=== PATIENT | male | born 1980 | race Caucasian/White ===

== ENCOUNTER → 2016-04-27 | Outpatient (CLI) | payer BC ==
[2016-04-27 17:43] LABS: CHLORIDE,CL 102 mmol/L (98-110); SODIUM,NA 138 mmol/L (136-146)
== END ==
LOC: MW.LAB 16:53
PROVIDERS: ATTEND Nurse Practitioner Family
DX: R05 Cough (principal); R53.81 Other malaise
CPT/HCPCS: 36415; 80053; 81001; 84439; 84443; 85025

== ENCOUNTER 2019-01-15 06:38 | Emergency (ER) | payer BC ==
--- NOTE | 2019-01-15 06:52 | EDM.PDOC ---
ED HPI GENERAL MEDICAL PROBLEM - General Chief Complaint: Upper Extremity Injury/Pain Stated Complaint: RT WRIST HURTS Time Seen by Provider: 01/15/19 06:47 - History of Present Illness INITIAL COMMENTS - FREE TEXT/NARRATIVE: HISTORY AND PHYSICAL: History of present illness: Patient is 38-year-old white male presents 1 day status post fall which injured his right wrist he denies other trauma or concern Review of systems: As per history of present illness and below otherwise all systems reviewed and negative. Past medical history: As per history of present illness and as reviewed below otherwise noncontributory. Surgical history: As per history of present illness and as reviewed below otherwise noncontributory. Social history: No reported history of drug or alcohol abuse. Family history: As per history of present illness and as reviewed below otherwise noncontributory. Physical exam: HEENT: Atraumatic, normocephalic, pupils reactive, negative for conjunctival pallor or scleral icterus, mucous membranes moist, throat clear, neck supple, nontender, trachea midline. Lungs: Clear to auscultation, breath sounds equal bilaterally, chest nontender. Heart: S1S2, regular, negative for clicks, rubs, or JVD. Abdomen: Soft, nondistended, nontender. Negative for masses or hepatosplenomegaly. Negative for costovertebral tenderness. Pelvis: Stable nontender. Genitourinary: Deferred. Rectal: Deferred. Extremities: Patient has tenderness over the lateral aspect of his right wrist this is on the dorsal aspect there is no gross deformity CMS neurovascular exam is unremarkable there is no snuffbox tenderness. Neuro: Awake, alert, oriented. Cranial nerves II through XII unremarkable. Cerebellum unremarkable. Motor and sensory unremarkable throughout. Exam nonfocal. Diagnostics: X-ray right wrist Therapeutics: Velcro splint Impression: #1 acute right wrist injury Definitive disposition and diagnosis as appropriate pending reevaluation and review of above. R anterior wrist Pain Score (Numeric/FACES): 7 - Related Data Allergies Allergy/AdvReac Type Severity Reaction Status Date / Time sulfamethoxazole Allergy Hives Verified 01/15/19 06:50 [From Bactrim] trimethoprim [From Bactrim] Allergy Hives Verified 01/15/19 06:50 Home Meds: Home Meds . [No Known Home Meds] 01/15/19 [History] Review of Systems - Review of Systems Review Of Systems: Comprehensive ROS is negative, except as noted in HPI. ED EXAM, GENERAL - Physical Exam Exam: See Below (See dictation) Course - Vital Signs Last Recorded V/S: Last Vital Signs Temp 36.0 C 01/15/19 06:45 Pulse 96 01/15/19 06:45 Resp 18 01/15/19 06:45 BP 159/97 H 01/15/19 06:45 Pulse Ox 96 01/15/19 06:45 Departure - Departure Time of Disposition: 07:52 Disposition: Home, Self-Care 01 Condition: Good Clinical Impression: Wrist injury - Discharge Information Referrals: PCP,None [Primary Care Provider] - Forms: ED Department Discharge Additional Instructions: The following information is given to patients seen in the emergency department who are being discharged to home. This information is to outline your options for follow-up care. We provide all patients seen in our emergency department with a follow-up referral. The need for follow-up, as well as the timing and circumstances, are variable depending upon the specifics of your emergency department visit. If you don't have a primary care physician on staff, we will provide you with a referral. We always advise you to contact your personal physician following an emergency department visit to inform them of the circumstance of the visit and for follow-up with them and/or the need for any referrals to a consulting specialist. The emergency department will also refer you to a specialist when appropriate. This referral assures that you have the opportunity for followup care with a specialist. All of these measure are taken in an effort to provide you with optimal care, which includes your followup. Under all circumstances we always encourage you to contact your private physician who remains a resource for coordinating your care. When calling for followup care, please make the office aware that this follow-up is from your recent emergency room visit. If for any reason you are refused follow-up, please contact the [facility] emergency department at and asked to speak to the emergency department charge nurse. Velcro splint as directed Motrin/Tylenol obstructive follow-up primary medical doctor as needed as discussed and return as needed as discussed
--- NOTE | 2019-01-15 07:49 | CR ---
INDICATION: Fall. Pain. FINDINGS: Two views of the right wrist show no evidence of acute fracture or dislocation. No other bony or soft tissue abnormalities identified. Dictated by Moris Carranza MD @ 01/15/2019 7:47:45 AM Dictated by: Moris Carranza MD @ 01/15/2019 07:47:57 (Electronically Signed)
== END 2019-01-15 08:00 | disposition home or self-care (01) ==
LOC: MW.ED 06:38
DX: S69.91XA Unspecified injury of right wrist, hand and finger(s), initial encounter (principal); Z88.2 Allergy status to sulfonamides; Z88.1 Allergy status to other antibiotic agents; W19.XXXA Unspecified fall, initial encounter
CPT/HCPCS: 29125; 73100-26-RT; 73100-RT; 99282; 99283-25